=== PATIENT | male | born 1960 | race Caucasian/White ===

== ENCOUNTER 2017-07-20 11:29 | Emergency (ER) | payer BC, OTHER ==
[~2017-07-20] VITALS: Ht 177.8 cm; Wt 64.8 kg
[2017-07-20 11:36] VITALS: BP 146/75; PULSE 77; RESP 16; TEMP 97.9; O2SAT 98
--- NOTE | 2017-07-20 12:34 | PD ---
HPI Chief Complaint: Musculoskeletal Complaint Time Seen by Provider: 12:31 Travel History International Travel<30 days: No Contact w/Intl Traveler<30days: No Traveled to known affect area: No History of Present Illness HPI 56 -year-old male with left posterior headache 4 days. He denies injury or trauma. He reports associated nausea without vomiting. No prior history of headaches or migraines. Pain is intermittent with episodes of severe sharp pain in the left posterior region. Pain lasts for several minutes and resolved. He denies fever, visual changes, neck pain, paresthesias or weakness of the extremities. [facility] Past Medical History Medical History: Denies Significant Hx Diminished Hearing: No Immunizations Current: No Tetanus Vaccination: Unknown Influenza Vaccination: No ?: Not Social History Alcohol Use: Yes (6pack/day) Tobacco Use: Yes (1/2 ppd) Substance Use: No Allergies-Medications (Allergen,Severity, Reaction): Coded Allergies: No Known Allergies (Unverified , 07/20/17) Reported Meds & Prescriptions Reported Meds & Active Scripts Active Ibuprofen 800 Mg Tab 800 Mg PO Q6HR PRN Review of Systems Except as stated in HPI: all other systems reviewed are Neg Physical Exam Narrative GENERAL: Alert male in no distress SKIN: Warm and dry. HEAD: Atraumatic. Normocephalic. Tenderness to the left occipital region. No hematoma. EYES: Pupils equal and round. No scleral icterus. No injection or drainage. ENT: No nasal bleeding or discharge. Mucous membranes pink and moist. NECK: Trachea midline. No JVD. No cervical midline tenderness. CARDIOVASCULAR: Regular rate and rhythm. RESPIRATORY: No accessory muscle use. Clear to auscultation. Breath sounds equal bilaterally. GASTROINTESTINAL: Abdomen soft, non-tender, nondistended. Hepatic and splenic margins not palpable. MUSCULOSKELETAL: Extremities without clubbing, cyanosis, or edema. No obvious deformities. NEUROLOGICAL: Awake and alert. No obvious cranial nerve deficits. Motor grossly within normal limits. Five out of 5 muscle strength in the arms and legs. Normal speech. PSYCHIATRIC: Appropriate mood and affect; insight and judgment normal. Data Data Last Documented VS Vital Signs Date Time Temp Pulse Resp B/P (MAP) Pulse Ox O2 Delivery O2 Flow Rate FiO2 07/20/17 11:36 97.9 77 16 146/75 (98) [address] Brain W/O Iv Contrast(Rout) (07/20/17 ) Ketorolac Inj (Toradol Inj) (07/20/17 13:45) Ed Discharge Order (07/20/17 13:35) MDM Medical Decision Making Medical Screen Exam Complete: Yes Emergency Medical Condition: Yes Differential Diagnosis Headache, migraine, ICH, brain neoplasm Narrative Course 56 old male with left posterior headache 4 days. He is a normal neurologic exam. He has tenderness over the left occipitalis muscle. CT scan of the brain was negative for mass or hemorrhage was an incidental finding of fluid in the right mastoid could indicate mastoiditis and in the clinical setting. Patient has no mastoid tenderness. No indication of otitis media. Diagnosis Primary Impression: Headache Qualified Codes: R51 - Headache Referrals: Primary Care Physician Additional Instructions: Follow up with her primary doctor. Return if he developed new or worsening symptoms. Scripts Ibuprofen (Ibuprofen) 800 Mg Tab 800 MG PO Q6HR Y for PAIN, #40 TAB 0 Refills Prov: Dyan Myles 07/20/17 Disposition: 01 DISCHARGE HOME Condition: Stable Dyan Myles Jul 20, 2017 12:34
--- NOTE | 2017-07-20 13:22 | RADRPT ---
EXAM DATE/TIME: 07/20/2017 13:02 [place] COMPARISON: No previous studies available for comparison. INDICATIONS : Left sided headache. No injury. RADIATION DOSE: 59.04 CTDIvol (mGy) MEDICAL HISTORY : None SURGICAL HISTORY : None. ENCOUNTER: Initial ACUITY: 4 - 6 days PAIN SCALE: 6/10 LOCATION: Left cranial TECHNIQUE: Multiple contiguous axial images were obtained of the head. Using automated exposure control and adj ustment of the mA and/or kV according to patient size, radiation dose was kept as low as reasonably a chievable to obtain optimal diagnostic quality images. DICOM format image data is available electro nically for review and comparison. FINDINGS: CEREBRUM: The ventricles are normal for age. No evidence of midline shift, mass lesion, hemorrhage or acute in farction. No extra-axial fluid collections are seen. POSTERIOR FOSSA: The cerebellum and brainstem are intact. The 4th ventricle is midline. The cerebellopontine angle i s unremarkable. EXTRACRANIAL: The visualized portion of the orbits is intact. Fluid in right mastoid air cells. SKULL: The calvaria is intact. No evidence of skull fracture. CONCLUSION: 1. No acute intracranial abnormality. 2. Fluid in the right mastoid air cells could be mastoiditis in the right clinical setting. Hebert Rondon MD on July 20, 2017 at 13:19 Board Certified Radiologist. This report was verified electronically.
[2017-07-20] MEDS ORDERED: IBUP1TAB7 PO (13:34)
[2017-07-20] MEDS ORDERED: KETOROLAC TROMETHAMINE 60 MG/2 ML (IM) VIAL IM ONE (13:45)
== END 2017-07-20 13:52 | disposition home or self-care (01) ==
LOC: PHEFT 11:29
DX: R51 Headache (principal); F17.200 Nicotine dependence, unspecified, uncomplicated
CPT/HCPCS: 70450; 99284